=== PATIENT | female | born 1960 | race Caucasian/White ===

== ENCOUNTER 2017-05-15 23:05 | Emergency (ER) | payer MEDICARE, OTHER ==
[~2017-05-15 23:05] MED LIST: ABIL5TAB7; ASPI81CH CHEW; CRES10TA PO; DEXI60CA2 PO; ESLI1TAB4 PO; LORA-474 PO; MONT10TA2 PO; PRED20 PO; ROBA500T PO; ROSU10 PO; TOPA25CA PO; ZOLO100T PO; [UNRECOGNIZED DRUG - OTHER] PO
[2017-05-15 23:43] VITALS: BP 125/66; PULSE 62; RESP 18; TEMP 98; O2SAT 97
[2017-05-15] MEDS ORDERED: ONDANSETRON HCL 4 MG/2 ML VIAL IV PUSH PRN (23:45)
[2017-05-15] MEDS ORDERED: ACETAMINOPHEN 500 MG CPLT PO PRN (23:45)
[2017-05-15] MEDS ORDERED: SODIUM CHLORIDE 0.9% FLUSH 10 ML FLUSH IV FLUSH PRN ×2 (23:45)
[2017-05-16 00:23] VITALS: PULSE 56
[2017-05-16 03:21] VITALS: BP 120/69; PULSE 57; RESP 16; TEMP 97.5; O2SAT 97
[2017-05-16 03:31] VITALS: BP 121/75; PULSE 65; RESP 20; TEMP 98.1; O2SAT 95
[2017-05-16 07:23] VITALS: PULSE 56
[2017-05-16 07:30] VITALS: BP 116/62; PULSE 61; RESP 17; TEMP 97.6; O2SAT 97
--- NOTE | 2017-05-16 08:21 | HHI.HP ---
HPI Primary Care Physician Non-Staff Chief Complaint Chest pain History of Present Illness This is a 56-year-old female with reported history of coronary artery disease that presents to ED with a complaint of chest discomfort. States that she had angioplasty without stenting in 2014 and states she still follows him as most recently as 2 weeks ago. States that yesterday while walking o'clock while at home doing nothing in particular she developed a discomfort just right of her sternum. She states it began as a sharp pain which lasts about 5 minutes but it recurred intermittently for a couple hours. She also states that if she would press on the area that he would create a pressure in the chest. She has no associated shortness of breath, nausea, or diaphoresis. The nothing to worsen or improve the symptoms. States that these symptoms are not similar to when she had angioplasty in 2014. Voices compliance with medications. Denies recent illness. Denies fevers or chills. Denies recent travel. Review of Systems General: Patient denies fevers, chills recent, and recent travel HEENT: Patient denies headache, sore throat, difficulty swallowing. Cardiovascular: Has the chest discomfort as mentioned above. Denies sensation of heart beating rapidly or irregularly. No syncope. Denies diaphoresis. Respiratory: Denies shortness of breath or inspirational chest discomfort. Denies coughing wheezing or hemoptysis. GI: Patient denies nausea, vomiting, diarrhea, abdominal pain, bloody stools. Musculoskeletal: Patient denies joint pain or edema. Denies calf pain or edema. Neurovascular: Patient denies numbness, tingling, weakness in extremities. Denies headache. Endocrine: Denies polyuria and polydipsia. Hematologic: Denies easy bruising. Skin: Denies rash or itching. Past Family Social History Allergies: Coded Allergies: sulfamethoxazole (Unverified Allergy, Severe, Anaphylaxis, 05/15/17) trimethoprim (Unverified Allergy, Severe, Anaphylaxis, 05/15/17) penicillin G (Unverified Allergy, Intermediate, REDNESS,ITCHING,SWELLING, 05/15/17) Past Medical History Stated history of CAD with angioplasty without stent[place] [address] Roque. History of seizure disorder secondary to cerebral aneurysm. Hyperlipidemia. Allergies. GERD. Denies hypertension and diabetes. Denies tobacco abuse. Past Surgical History Cholecystectomy. Cardiac catheterization with angioplasty but without stenting. Reported Medications Reported Meds & Active Scripts Active Reported Dexilant (Dexlansoprazole) 60 Mg Brett.bp 60 Mg PO DAILY Aspirin 81 Mg Chew 81 Mg CHEW DAILY Singulair (Montelukast Sodium) 10 Mg Tab 10 Mg PO HS Crestor (Rosuvastatin Calcium) 10 Mg Tab 10 Mg PO DAILY Abilify (Aripiprazole) 5 Mg Tablet Zoloft (Sertraline HCl) 100 Mg Tab 100 Mg PO DAILY Topamax Sprinkle (Topiramate) 25 Mg Cap 50 Mg PO BID Aptiom (Eslicarbazepine) 800 Mg Tab 800 Mg PO DAILY Active Ordered Medications Current Medications Medications (Trade) Dose Ordered Sig/Alexander Route Start Time Stop Time Status Last Admin (NS Flush) 2 ml UNSCH PRN IV FLUSH 05/15/17 23:45 (NS Flush) 2 ml UNSCH PRN IV FLUSH 05/15/17 23:45 (Tylenol) 500 mg Q4H PRN PO 05/15/17 23:45 05/16/17 00:02 (Zofran Inj) 4 mg Q6H PRN IV PUSH 05/15/17 23:45 (Aspirin) 325 mg DAILY PO 05/16/17 09:00 (Singulair) 10 mg HS PO 05/16/17 21:00 UNV (Zoloft) 100 mg DAILY PO 05/16/17 09:00 UNV Non-Formulary Medication 60 mg DAILY PO 05/16/17 09:00 UNV Non-Formulary Medication 800 mg DAILY PO 05/16/17 09:00 UNV Non-Formulary Medication 10 mg DAILY PO 05/16/17 09:00 UNV Non-Formulary Medication 50 mg BID PO 05/16/17 09:00 UNV Family History States her mother had an MT. Social History Lifetime nonsmoker. Denies alcohol or illicit drugs. Physical Exam Vital Signs Vital Signs Date Time Temp Pulse Resp B/P (MAP) Pulse Ox O2 Delivery O2 Flow Rate FiO2 05/16/17 07:30 97.6 61 17 116/62 (80) 97 05/16/17 07:23 56 05/16/17 03:31 98.1 65 20 121/75 (90) 95 05/16/17 03:21 97.5 57 16 120/69 (86) 97 05/16/17 00:23 56 05/15/17 23:43 98.0 62 18 125/66 (85) 97 Physical Exam GENERAL: This is a well-nourished, well-developed patient, in no apparent distress. Patient speaks in clear complete sentences. Patient is pleasant. HEENT: Head is atraumatic and normocephalic. Neck is supple without lymphadenopathy and trachea is midline. No JVD or carotid bruits. CARDIOVASCULAR: Regular rate and rhythm without murmurs, gallops, or rubs. RESPIRATORY: Chest wall is tender just right of sternum but patient states that this is a little different than the discomfort she had yesterday. But same location. Clear to auscultation. Breath sounds equal bilaterally. No wheezes, rales, or rhonchi. No use of accessory muscles. GASTROINTESTINAL: Abdomen is nontender, nondistended. Abdomen soft. No obvious pulsatile mass or bruit. No CVA tenderness. Strong femoral pulses bilaterally. Normal bowel sounds in all quadrants. MUSCULOSKELETAL: Patient is moving upper and lower extremities freely. No calf tenderness or edema, no Homans sign. Strong pulses in upper and lower extremities. NEUROLOGICAL: Patient is alert and oriented. Cranial nerves 2-12 are grossly intact. No focal deficits and speech is clear. SKIN: No rash and turgor is normal. Laboratory Laboratory Tests Test 05/15/17 23:20 05/16/17 02:20 Troponin I LESS THAN 0.02 LESS THAN 0.02 Imaging Vital Signs Date Time Temp Pulse Resp B/P (MAP) Pulse Ox O2 Delivery O2 Flow Rate FiO2 05/16/17 07:30 97.6 61 17 116/62 (80) 97 05/16/17 07:23 56 05/16/17 03:31 98.1 65 20 121/75 (90) 95 05/16/17 03:21 97.5 57 16 120/69 (86) 97 05/16/17 00:23 56 05/15/17 23:43 98.0 62 18 125/66 (85) 97 Course EKGs have sinus rhythm without significant ST segment depressions or elevations. Chest x-ray is unremarkable. A CT brain obtained in the ED read by radiologist as nothing acute. Caprini VTE Risk Assessment Caprini VTE Risk Assessment: No/Low Risk (score <= 1) Caprini Risk Assessment Model Point Value = 1 Point Value = 2 Point Value = 3 Point Value = 5 Age 41-60 Minor surgery BMI > 25 kg/m2 Swollen legs Varicose veins or History of unexplained or recurrent spontaneous Oral contraceptives or hormone replacement Sepsis (< 1 month) Serious lung disease, including pneumonia (< 1 month) Abnormal pulmonary function Acute myocardial infarction Congestive heart failure (< 1 month) History of inflammatory bowel disease Medical patient at bed rest Age 61-74 Arthroscopic surgery Major open surgery (> 45 min) Laparoscopic surgery (> 45 min) Malignancy Confined to bed (> 72 hours) Immobilizing plaster cast Central venous access Age >= 75 History of VTE Family history of VTE Factor V Leiden Prothrombin [id number] Lupus anticoagulant Anticardiolipin antibodies Elevated serum homocysteine Heparin-induced thrombocytopenia Other congenital or acquired thrombophilia Stroke (< 1 month) Elective arthroplasty Hip, pelvis, or leg fracture Acute spinal cord injury (< 1 month) Prophylaxis Regimen Total Risk Factor Score Risk Level Prophylaxis Regimen 0-1 Low Early ambulation 2 Moderate Order ONE of the following: *Sequential Compression Device (SCD) *Heparin 5000 units SQ BID 3-4 Higher Order ONE of the following medications: *Heparin 5000 units SQ TID *Enoxaparin/Lovenox 40 mg SQ daily (WT < 150 kg, CrCl > 30 mL/min) *Enoxaparin/Lovenox 30 mg SQ daily (WT < 150 kg, CrCl > 10-29 mL/min) *Enoxaparin/Lovenox 30 mg SQ BID (WT < 150 kg, CrCl > 30 mL/min) AND/OR *Sequential Compression Device (SCD) 5 or more Highest Order ONE of the following medications: *Heparin 5000 units SQ TID (Preferred with Epidurals) *Enoxaparin/Lovenox 40 mg SQ daily (WT < 150 kg, CrCl > 30 mL/min) *Enoxaparin/Lovenox 30 mg SQ daily (WT < 150 kg, CrCl > 10-29 mL/min) *Enoxaparin/Lovenox 30 mg SQ BID (WT < 150 kg, CrCl > 30 mL/min) AND *Sequential Compression Device (SCD) Assessment and Plan Assessment and Plan * Chest pain: Patient has had serial cardiac enzymes and EKGs for ruling out purposes. She will be evaluated by Dr. Flynn of cardiology in the [facility]. Also discussed the patient with her technician plant and maintenance Dr. Cristóbal Roque who states he will see her in about 20 minutes. * CAD: Patient had normal troponins. Patient states she had a stress test in Dr. perea's office 6 months ago and that was okay. Dr. Roque is about to evaluate her. * Hyperlipidemia: Continue current medication. * GERD: Continue her medication. * Seizure disorder: Continue current medication. Patient is stable at this time. She is agreeable to this plan. Ollie Granger May 16, 2017 08:21
[2017-05-16] MEDS ORDERED: ASPIRIN 325 MG TAB PO SCH (09:00)
[2017-05-16] MEDS ORDERED: PANTOPRAZOLE SOD 40 MG DELAYED RELEASE TAB PO SCH (09:00)
[2017-05-16] MEDS ORDERED: SERTRALINE HCL 100 MG TAB PO SCH (09:00)
[2017-05-16] MEDS ORDERED: ARIP1TAB11 PO (09:12)
[2017-05-16] MEDS ORDERED: APTIOM 800 MG PO SCH (09:15)
[2017-05-16] MEDS ORDERED: TOPIRAMATE 50 MG PO SCH (09:15)
[2017-05-16] MEDS ORDERED: ATORVASTATIN 20 MG TAB PO SCH (09:15)
--- NOTE | 2017-05-16 09:51 | MB ---
cc: MARYLU BAIRES M.D. DATE OF CONSULTATION: 05/16/2017 REASON FOR CONSULTATION: Mag is a very pleasant 48-year lady history coronary disease. She has had a non-STEMI in the past. Her procedures were done at [facility], she had a stent placed in 2013 by myself and I believe that she had one of the PCI's was due to a small LUKE or PDA, I do not recall exactly, She presents with chief complaint of chest pain lasting for 1-2 hours. The pain was not like her pain that she had prior to her PCI's, This morning she is asleep I had to wake her up, she is in no acute distress. The pain that is described as sharp and lasting most five minutes and again recurring over a couple of hours. Otherwise she denies any fevers, chills, cough, bleeding, pain or orthopnea, except for as noted in the history of present illness, or history of present illness. She has a history of seizure disorder secondary to cerebral aneurysm, hyperlipidemia, gastroesophageal reflux disease and cholecystectomy. SOCIAL HISTORY Denies tobacco or alcohol use. ALLERGIES SULFAMETHOXAZOLE TRIMETHOPRIM PENICILLIN G MEDICATIONS: PRIOR TO ADMISSION: Dexilant Aspirin 81 mg daily. Singulair. Crestor 10 mg daily. Abilify. Zoloft. Topamax [place] IN THE HOSPITAL: Atorvastatin 20 daily. Aspirin 225 daily. Pantoprazole 40 daily. PHYSICAL EXAMINATION VITAL SIGNS: Blood pressure was 160/62, pulse 60 on 10/18, temperature 97.6. IN GENERAL: She is sound asleep but easily awakened, no acute distress. Oriented times three. NECK: Supple. No JVD, no bruit CARDIOVASCULAR SYSTEM: S1, S2, No murmurs, rubs or gallops. LUNGS: Clear to auscultation bilaterally. ABDOMEN: Soft, nontender, nondistended with positive bowel sounds. EXTREMITIES: No extremity edema. LABORATORY FINDINGS: Troponin is less than 0.2 x 2, white count 6.1, hemoglobin 12.7 hematocrit 37.7, platelet count 184, sodium 141, potassium 3.8, chloride 111, bicarb 23.0, BUN 13, creatinine 0.60. B-type natriuretic peptide is 14. Liver function tests normal. Calcium 8.6. INR 1.1. RADIOLOGIC: Initial electrocardiogram sinus bradycardia at 50 beats per minute. T-wave inversion V1-V2. Second electrocardiogram; Sinus bradycardia 58 beats per minute, nonspecific ST-T wave changes. Chest x-ray. No active disease. Minimal basilar lung scarring. Head CT; no acute intracranial abnormalities. Mucosal thickening in the paranasal sinuses. FINAL DIAGNOSIS 1. Atypical chest pain. 2. Coronary disease. 3. History of cerebral aneurysm. 4. Seizure disorder secondary to cerebral aneurysm. 5. Hyperlipidemia 6. Headache. DISCUSSION This point in time the patient is atypical chest pain is not related to exertion. Cardiac enzymes are negative. Electrocardiogram shows no definite ischemia. She has a history of cerebral aneurysm with a subsequent seizure disorder. Therefore I do think medical management is preferable from a risk benefit standpoint, the patient is hemodynamically stable. She is euvolemic. At this point and time the patient can be discharged on aspirin and continue Crestor. I told her to follow up with me in my office on May 19, 2017. I recommended also, advised the patient to call 9--1 for chest pain lasts more then 15 minutes. MD GWEN Rajan/adrián /9:16 AM /9:27 AM
--- NOTE | 2017-05-16 10:37 | HHI.DCPOC ---
Discharge Care Plan Diagnosis: (1) Chest pain (2) CAD (coronary artery disease) (3) Hyperlipidemia Goals to Promote Your Health * To prevent worsening of your condition and complications * To maintain your health at the optimal level Directions to Meet Your Goals Take your medications as prescribed Follow your dietary instruction Follow activity as directed Keep your appointments as scheduled Take your immunizations and boosters as scheduled If your symptoms worsen call your PCP, if no PCP go to Urgent Care Center or Emergency Room Smoking is Dangerous to Your Health. Avoid second hand smoke Call the 24-hour hour crisis hotline for domestic abuse at Ollie Granger May 16, 2017 10:37
--- NOTE | 2017-05-16 15:09 | EKG ---
Date Performed: 05/16/2017 Time Performed: 02:56:29 PTAGE: 56 years EKG: SINUS BRADYCARDIA LOW QRS VOLTAGE IN PRECORDIAL LEADS POSSIBLE INFERIOR MYOCARDIAL INFARCTI ON ABNORMAL ECG PREVIOUS TRACING : 05/15/2017 23.49 DOCTOR: Epifanio Flynn Interpretating Date/Time 05/16/2017 15:09:04
--- NOTE | 2017-05-16 15:10 | EKG ---
Date Performed: 05/15/2017 Time Performed: 23:49:55 PTAGE: 56 years EKG: SINUS BRADYCARDIA LOW QRS VOLTAGE IN PRECORDIAL LEADS POSSIBLE INFERIOR MYOCARDIAL INFARCTI ON AGE UNDET ABNORMAL ECG PREVIOUS TRACING : 12/22/2014 06.54 DOCTOR: Epifanio Flynn Interpretating Date/Time 05/16/2017 15:09:39
[2017-05-16] MEDS ORDERED: MONTELUKAST SODIUM 10 MG TAB PO SCH (21:00)
== END 2017-05-16 12:34 | disposition home or self-care (01) ==
LOC: NEDDLT 23:05 → NEPFCDU 23:15 → NEDDLT 23:15 → UNDOADMOB 23:15 → UNDODISOB 05-16 12:34 → NEDDLT 05-16 12:34
DX: R07.89 Other chest pain (principal); I25.10 Atherosclerotic heart disease of native coronary artery without angina pectoris; G40.909 Epilepsy, unspecified, not intractable, without status epilepticus; E78.5 Hyperlipidemia, unspecified; R51 Headache; Z79.82 Long term (current) use of aspirin; Z79.899 Other long term (current) drug therapy
CPT/HCPCS: 70450; 71010; 80048; 82550; 83690; 83735; 83880; 84484; 85025; 85610; 85730; 93005; 99281; 99285

== ENCOUNTER 2017-06-20 06:38 | Day surgery (SDC) | payer MEDICARE, OTHER ==
[~2017-06-20] VITALS: Ht 157.5 cm; Wt 82.7 kg
[~2017-06-20 06:38] MED LIST changes: -ABIL5TAB7; +ARIP1TAB11 PO; +ASPI-516 CHEW; -ASPI81CH CHEW; -CRES10TA PO; -DEXI60CA2 PO; +DEXI60CA3 PO; -LORA-474 PO; -PRED20 PO; -ROBA500T PO; -[UNRECOGNIZED DRUG - OTHER] PO
[2017-06-20] MEDS ORDERED: IOHEXOL 350 MG/ML 50 ML BTL (for Cath Lab) OTHER ONE (06:39)
[2017-06-20 07:30] VITALS: BP 119/70; PULSE 61; RESP 17; TEMP 97.7; O2SAT 96
[2017-06-20] MEDS ORDERED: NS 1000P @30 MLS/HR (KVO) IV SCH (08:00)
[2017-06-20 08:08] LABS: AUTOMATED NEUTROPHIL # 2.8 TH/MM3 (1.8-7.7); BASOPHIL % 0.8 % (0.0-2.0); EOSINOPHIL # 0.3 TH/MM3 (0-0.4); EOSINOPHIL % 5.3 % (0.0-4.0); HEMATOCRIT 37.4 % (35.0-46.0); HEMO FLAGS DIFF FINAL; LYMPH % 31.4 % (9.0-44.0); LYMPHOCYTE # 1.7 TH/MM3 (1.0-4.8); MEAN CORPUSCULAR HEMOGLOBIN 31.7 PG (27.0-34.0); MEAN CORPUSCULAR HGB CONC 33.7 % (32.0-36.0); MONO % 8.6 % (0.0-8.0); NEUT % 53.9 % (16.0-70.0); PLATELET COUNT 176 TH/MM3 (150-450); RED BLOOD COUNT 3.98 MIL/MM3 (4.00-5.30); RED CELL DISTRIBUTION WIDTH 13.7 % (11.6-17.2); WHITE BLOOD COUNT 5.3 TH/MM3 (4.0-11.0)
[2017-06-20] MEDS ORDERED: ASPIRIN 81 MG CHEW TAB PO SCH (08:15)
[2017-06-20 08:16] LABS: APTT (PATIENT) 22.2 SEC (24.3-30.1); PROTHROMBIN TIME - PATIENT 10.8 SEC (9.8-11.6)
[2017-06-20] MEDS ORDERED: LORA1TAB12 PO (08:23)
[2017-06-20 08:25] LABS: BICARBONATE 24.2 MEQ/L (21.0-32.0); POTASSIUM 3.8 MEQ/L (3.5-5.1)
[2017-06-20] MEDS ORDERED: MIDAZOLAM HCL 2 MG/2 ML VIAL ONE (08:41)
[2017-06-20] MEDS ORDERED: NITROGLYCERIN INJ 5 ML ONE (09:11)
--- NOTE | 2017-06-20 09:25 | CATHPROC ---
Kangsheng Chuangxiang HIS Report Study Information Study Number Admission Scheduled Start Study Start [id number] Jun 20 2017 6:38AM 06/20/2017 Jun 20 2017 8:12AM [facility] Cardiac Catheterization Admit Source Facility Department Other [facility] - Lifestyle Director Physician and Clinical Staff Initial Cristóbal Siddiqui Plugging Machine Operator Mackenzie Bucio,ADRIAN Recorder Elsie Mendiola,(R) (BS) Scrub Xavi Giron RCIS(BS) Procedures Performed Procedure Location (Site) Vessel Name Coronary Angiograms RCA Right Coronary L Heart Cath LV Gram-hand inj. LV LV Ventricle Equipment Time Composition Board Press Operator Description Size Mfg Part Number Used/Scraped TRANSDUCER, TRUWAVE [id number] 08:13 [employer] MALLOY * Used W/STOCKCOCK *[id number] *[id number] *[id number] 08:13 [place] [employer] INDUSTRIES PACK, CCL CUSTOM * Used *[id number] 08:13 [place] [employer] PACER PEN, SKIN DUAL W/ RULER * Used *[id number] 08:13 [employer] WIRE, 3MMJ .035 180CM 180CM Used *[id number] 08:13 NAMIC MANIFOLD, 4 PORT * Used *[id number] 08:13 [employer]ED OMNIPAQUE, 350 MG, 150ML 150ML [id number] 08:13 [employer] MED[employer] BLANKET,WARM AIR CCL * Used *[id number] 08:13 TERUMNexPlanar MEDICAL SHEATH, FR4 TERUMO (10CM) FR 4 Used *[id number] History: Current Medications Medication Dosage/Unit Route Frequency Last Date/Time Taken Statins (any) ASA History: Allergies Allergy Reaction sulfamethoxazole Anaphylaxis trimethoprim Anaphylaxis penicillin G REDNESS,ITCHING,SWELLING History: Risk Factors Family History of Hypertension Dyslipidemia Previous ID Previous Heart Failure Premature CAD No Yes No Yes No Prior Valve Prior PCI Prior PCIDate Prior CABG Surgery No Yes 06/04/2014 No Cerebrovascular Peripheral Artery Chronic Lung On Dialysis Diabetes Disease Disease Disease No No No Yes No History: Stress Tests Stress or Imaging Studies Performed Yes Standard Exercise Stress Test No Stress Echo No Stress Test SPECT Yes Stress Test CMR No Cardiac CTA Coronary Calcium Score No No History: Other Current Smoker No Labs Hgb (g/dl) Hct (%) RBC (MIL/MM3) WBC (l/cumm) Platelets (thousands) 11.60-17.00 35.00-51.00 4.00-5.90 4.00-11.00 150.00-450.00 12.6 37.4 3.9 5.3 176 BUN (mg/dl) Creatinine (mg/dl) BUN:Creatinine (1:x) 7.00-18.00 0.50-1.30 10.00-20.00 14 0.5 28 Na (meq/l) K (meq/l) Cl (meq/l) CO2 (mmol/L) Ca (mg/dl) 136.00-145.00 3.50-5.10 98.00-107.00 21.00-32.00 8.50-10.10 142 3.8 111 24.2 8.6 PT (sec) INR (PTT:PT) 9.80-11.60 0.90-1.10 10.8 1 CPK-MB (ng/ML) 0.50-3.60 Not Drawn Medication Medication Total Dose (Bolus/Oral) Medication Total Dosage/Unit 1% XYLOCAINE 20 mL NTG (IC) 200 mcg VERSED 1 mg Medications (Bolus/Oral) Medication Time Given Dosage/Unit Administered By Reason VERSED 06/20/2017 9:01:31 AM 1 mg Mackenzie Bucio 1 mg VERSED given in lab by Mackenzie Bucio RN in Left Wrist via Peripheral IV. 1% XYLOCAINE 06/20/2017 9:02:14 AM 20 mL Cristóbal Roque 20 mL 1% XYLOCAINE given in lab by Cristóbal Roque in Right Groin via Subcutaneous. NTG (IC) 06/20/2017 9:10:52 AM 200 mcg Xavi Giron 200 mcg NTG (IC) given in lab by Xavi Giron RCIS(BS) in Right Groin via Intra-coronary. Medication (Drip) Medication Time Given Dosage/Unit Concentration/Unit Diluent (ml) Soluti on IV Solutions 06/20/2017 8:29:03 AM 0 mL (IV) 500 NaCl .9 IV Solutions given in lab by Mackenzie Bucio RN in Left Wrist via Peripheral IV. Pump/Drip Flow = 20 ml/hr using NaCl .9. Initial Case Assessment Cardiovascular HR Rhythm NIBP Chest Pain 61 reg 123/73 0 Edema Present Skin color Skin None Normal Warm Dry Circulatory - Right Pulses Dorsalis Pedis Femoral 2 2 Scale (0,1,2,3,4,d) Circulatory - Left Pulses Dorsalis Pedis Femoral 2 2 Scale (0,1,2,3,4,d) Circulatory - Lower Extremities Color Lower Right Color Lower Left Normal Normal Neurological State Oriented to time-place- Alert Moves all extremities person Respiration - General Respiration Rate SpO2 (%) (B/min) 12 99 Chronological Log Time Study Chronological Log 8:28:51 Patient arrived via Bed. 8:28:52 Patient Name, D.O.B, / Armband Verified By R.N. 8:28:52 Consent signed by the physician and the patient and verified by the Lifestyle Director staff. 8:28:53 Pre-op and post- op instructions given; patient acknowledges understanding of instructions. 8:28:53 Verbal Stimulation=2 Physical Stimulation=2 Airway=2 Respiration=2 TOTAL=8. (0=absent, 1=li mited, 2=present) 8:28:55 Presedation assessment performed by Lifestyle Director RN. 8:28:58 Patient has been NPO for More than 6Hrs. 8:28:59 Skin Breakdown none per pt 8:29:00 Patient Warmer Placed on the Table. 8:29:00 Kassie Prominences Protected 8:29:02 A # 18 IV was noted in the Wrist (left). Grade = 0 IV Solutions given in lab by Mackenzie Bucio, RN in Left Wrist via Peripheral IV. Pump/Drip Travis w = 20 ml/hr using NaCl 8:29:03 .9. 8:29:04 History and physical on the chart or being dictated. Vitals capture started with the following parameters, Patient=Adult, Interval=5 min, Initial Pre mysyr=617 mmHg, 8:36:15 Deflation Rate=5 mmHg, Cuff placed on Left Arm Assessment: Initial Case, HR=61 BPM, Rhythm=reg, ZDSY=808/73 mmhg, Chest Pain=0, Edema=None, Col or=Normal, Skin = Warm, Dry Right Pulses: Lane Ped=2, Femoral=2 Left Pulses: Lane Ped=2, Femoral=2 8:36:27 Lower Right Extremities: Color=Normal Lower Left Extremities: Color=Normal Neurological: State=Alert, Ox3, HODGE Respiration: Resp=12 B/min, SpO2=99 % 8:36:53 HR=57 bpm, ESTR=960/73 mmhg, SpO2=99.0 %, Resp=12 B/min, Pain=0, Mono=10, Roblero=2 8:37:50 Reference ECG taken 8:40:38 Bilateral groins prepped with 2% chlorhexidine, and draped after a 3 minute waiting time. 8:41:48 HR=58 bpm, FWCC=801/74 mmhg, HkA5=718.0 %, Resp=14 B/min, Pain=0, Mono=10, Roblero=2 8:43:45 MD paged 8:46:12 MD responded 8:46:49 HR=61 bpm, MMWL=060/77 mmhg, SpO2=99.0 %, Resp=15 B/min, Pain=0, Mono=10, Roblero=2 8:49:29 Pressure channel 1 zeroed. 8:51:51 HR=58 bpm, XAYH=803/77 mmhg, SpO2=99.0 %, Resp=11 B/min, Pain=0, Mono=10, Roblero=2 8:56:52 HR=59 bpm, KIWG=937/70 mmhg, SpO2=97.0 %, Resp=10 B/min, Pain=0, Mono=10, Roblero=2 8:58:00 MD arrived Time Out. Correct patient, correct procedure, correct physician, power injector not loaded with contrast with surgical 9:01:02 team present. Time Out Concurred by MD and individual staff in procedure. 9:01:24 Case Start 9:01:31 1 mg VERSED given in lab by Mackenzie Bucio, ADRIAN in Left Wrist via Peripheral IV. 9:01:51 HR=60 bpm, QNAP=616/73 mmhg, SpO2=96.0 %, Resp=12 B/min, Pain=0, Mono=10, Roblero=2 9:02:14 20 mL 1% XYLOCAINE given in lab by Cristóbal Roque in Right Groin via Subcutaneous. 9:05:56 Access site was Right Femoral Artery. 9:06:04 A SHEATH, FR4 TERUMO (10CM) FR 4 was advanced into the Fem Art (right) using the Percutaneou s technique. A JR 4.0 INFINITI CATHETER FR 4 was advanced over a wire. OMNIPAQUE, 350 MG, 150ML 150ML was use d for 9:06:11 injections. Recorded Pressure: LV, HR=61, Condition=Condition 1 9:06:37 (Left Ventricle) LV 123/10/18 Recorded Pressure: LV, Ao, HR=59, Condition=Condition 1 9:06:45 (Left Ventricle) LV 112/-30/45, (Aorta) Ao 124/67/91 9:06:45 The LV was manually injected with 8 cc's and visualized. OMNIPAQUE, 350 MG, 150ML 150ML used . 9:06:50 HR=57 bpm, FIPG=231/79 mmhg, SpO2=97.0 %, Resp=11 B/min, Pain=0, Mono=10, Roblero=2 9:08:20 The RCA was injected and visualized at various angles. OMNIPAQUE, 350 MG, 150ML 150ML used. 9:08:29 Catheter was removed A JL 4.0 INFINITI CATHETER FR 4 was advanced over a wire. OMNIPAQUE, 350 MG, 150ML 150ML was use d for ::31 injections. Recorded Pressure: Ao, HR=64, Condition=Condition 1 9:09:21 (Aorta) Ao 119/63/86 9:09:55 Catheter was removed 9:10:52 200 mcg NTG (IC) given in lab by Xavi Giron RCIS(RAVI) in Right Groin via Intra-coronary. 9:11:55 HR=77 bpm, WICZ=520/68 mmhg, SpO2=95.0 %, Resp=23 B/min, Pain=0, Mono=10, Roblero=2 9:13:10 Case End 9:13:23 Catheter(s) removed without difficulty 9:13:28 No case complications noted. :13:31 Bedside Report will be given. 9:13:50 A Left Heart Cath was performed. 9:15:56 Sheath removed; pressure applied to access site. 9:16:10 DOCU called. Spoke to Stephanie. 9:16:50 HR=60 bpm, BKJI=144/69 mmhg, SpO2=95.0 %, Resp=11 B/min, Pain=0, Mono=10, Roblero=2 9:21:51 HR=57 bpm, JJXU=666/70 mmhg, SpO2=98.0 %, Resp=9 B/min, Pain=0, Mono=10, Roblero=2 9:24:02 Sterile dressing applied to site 9:26:45 Patient moved to stretcher End Study - Contrast Media Used In Study Contrast Total Opened (mL) Total Used (mL) Total Wasted (mL) Omnipaque 20 20 0 End Study - Maximum Contrast Load Max Contrast Load (mL) 826.8 End Study - Radiation Exposure Fluoro Time (minutes) 1.0 End Study - Patient Disposition Complications Transferred To Interventional Outcome No Lifestyle Director Holding No attempt made
[2017-06-20] MEDS ORDERED: SODIUM CHLORIDE 0.9% FLUSH 10 ML FLUSH IV FLUSH PRN (09:45)
[2017-06-20] MEDS ORDERED: MISC INFORMATION XX ONE (10:00)
[2017-06-20] MEDS ORDERED: AMLO5 PO (11:58)
--- NOTE | 2017-06-20 18:16 | EKG ---
Date Performed: 06/20/2017 Time Performed: 08:14:36 PTAGE: 56 years EKG: Small inferior Q waves of undetermined significance Low precordial lead voltage Since previ ous tracing, no significant change noted Abnormal ECG PREVIOUS TRACING : 05/16/2017 02.56 DOCTOR: Homer Collier Interpretating Date/Time 06/20/2017 18:15:30
--- NOTE | 2017-06-20 20:17 | MA ---
cc: MARYLU BAIRES M.D. DATE 06/20/17 PROCEDURE PERFORMED 1. Left heart catheterization. 2. Left ventriculography. 3. Coronary angiography. INDICATIONS Unstable angina, new onset cardiac symptom of chest pain at rest, unstable angina. [place] [employer] class IV angina. Small fixed defect in the anterior and inferoapical region. Small to moderate size reversible defect in the posterior wall, apical wall, EF 65%. History of coronary artery disease status post multiple PCI and admission to the hospital for episode of chest pain. PROCEDURE IN DETAIL The patient was brought to the cardiac catheterization laboratory, prepped and draped in the usual sterile fashion. 10 cc of 1% lidocaine was used to locally anesthetize the right common femoral artery, 4-Niuean sheath successfully placed in the right common femoral artery. 4-Niuean JR-4, JL-4 catheters were used to perform left and right coronary angiography, left ventriculography. FINDINGS LV pressure is 130/11-12, ejection fraction 60%. The right coronary artery is dominant. It has subtle tapering in the midsegment possibly to 20 to perhaps 30% but no focal segmental stenosis. The right PDA is a small vessel, probably 2.25 mm in diameter. A long subtle stenosis in the proximal segment up to 20% angiographically. ___ posterolateral artery is also small, approximately a 2.5-mm vessel but then bifurcates the proximal segment to 2 ___ mm branches. Left main coronary artery has no significant disease angiographically. Left circumflex vessel has no significant disease angiographically. First obtuse marginal vessel is a medium size vessel which bifurcates in the [id number] segment, has no significant disease angiographically proximal to the bifurcation, the more lateral branch of the bifurcation, is a small vessel probably 1-1.5 mm in diameter with mild diffuse disease up to 20 to 30% angiographically. LAD is transapical. After the first diagonal artery the vessel tapers from a 3.25 mm vessel to a 2.5 mm vessel after the first diagonal artery and then after the second diagonal artery and still in the mid segment of the LAD the vessel tapers to approximately 2.0 mm and then in the mid to distal vessel the vessel is approximately 1 mm in diameter with no focal segmental stenosis. I gave 200 micrograms of intracoronary nitroglycerin, there was a very subtle improvement in vessel diameter throughout the LAD. First and second diagonal arteries are small vessels with no significant disease angiographically. CONCLUSION 1. Angiographically mild three-vessel coronary artery disease in a right-dominant system as detailed above. 2. Questionable coronary spasm with minimal improvement with 200 micrograms of intracoronary nitroglycerin. 3. Recommend continue aspirin 81 milligrams daily, Crestor 10 milligrams daily. Consider low dose Norvasc and/or long-acting nitrates, however, the patient has a history of hypotension with baseline systolic pressures around 100 mmHg. MD GWEN Rajan/EO /9:23 AM /7:55 PM
[2017-06-20] MEDS ORDERED: SODIUM CHLORIDE 0.9% FLUSH 10 ML FLUSH IV FLUSH SCH (21:00)
== END 2017-06-20 12:10 | disposition home or self-care (01) ==
LOC: HDIC 06:38 → HDOC 06:38
PROVIDERS: ATTEND Internal Medicine Interventional Cardiology
DX: I25.110 Atherosclerotic heart disease of native coronary artery with unstable angina pectoris (principal); Z79.82 Long term (current) use of aspirin
CPT/HCPCS: 80048; 85025; 85610; 85730; 93005; 93458; C1769; C1893; J2250; J3010; Q9967